=== PATIENT | male | born 1960 | race Caucasian/White ===

== ENCOUNTER 2017-04-29 14:50 | Emergency (ER) | payer MEDICAID ==
[~2017-04-29] VITALS: Ht 180.3 cm; Wt 68.0 kg
[2017-04-29] MEDS ORDERED: metoprolol tartrate 25mg tablet PO ONE ×2 (15:20→15:40)
[2017-04-29 15:58] LABS: BASOPHILS % (AUTO) 0.4 % (0-1); EOSINOPHILS # (AUTO) 0.2 X10'3 (0-0.9); EOSINOPHILS % (AUTO) 1.9 % (0-6); HEMOGLOBIN 15.4 g/dl (14.0-17.9); LYMPHOCYTES # (AUTO) 2.3 X10'3 (1.1-4.8); LYMPHOCYTES % (AUTO) 28.3 % (21-51); MEAN CORPUSCULAR HEMOGLOBIN 30.7 PG (27.0-31.0); MEAN CORPUSCULAR HGB CONC 34.3 % (33.0-36.5); MEAN CORPUSCULAR VOLUME 89.7 FL (78-98); MEAN PLATELET VOLUME 8.6 FL (7.4-10.4); MONOCYTES # (AUTO) 0.5 X10'3 (0-0.9); MONOCYTES % (AUTO) 6.6 % (2-12); NEUTROPHILS # (AUTO) 5.1 X10'3 (1.8-7.7); NEUTROPHILS % (AUTO) 62.8 % (42-75); PLATELET COUNT 243 X10'3 (140-440); RED BLOOD COUNT 5.02 X10'6 (4.70-6.10); RED CELL DISTRIBUTION WIDTH 13.2 % (11.5-14.5); WHITE BLOOD COUNT 8.1 X10'3 (4.5-11.0)
[2017-04-29 16:09] LABS: ALANINE AMINOTRANSFERASE 42 U/L (12-78); ALBUMIN 3.6 G/DL (3.4-5.0); ALBUMIN/GLOBULIN RATIO 1.1 (1.1-1.5); ALKALINE PHOSPHATASE 90 IU/L (46-116); ANION GAP 4 (8-16); ASPARTATE AMINO TRANSFERASE 22 U/L (10-37); BILIRUBIN,TOTAL 0.4 MG/DL (0.1-1.0); BLOOD UREA NITROGEN 13 MG/DL (7-18); CHLORIDE 105 MMOL/L (99-107); CREATININE 1.18 MG/DL (0.60-1.10); GLUCOSE 179 MG/DL (70-104); POTASSIUM 4.3 MMOL/L (3.5-5.1); SODIUM 142 MMOL/L (135-145); TOTAL CARBON DIOXIDE 33.4 MMOL/L (24-32); TOTAL PROTEIN 6.9 G/DL (6.4-8.2); eGFR 63 ML/MIN
[2017-04-29 16:18] LABS: MAGNESIUM 2.1 MG/DL (1.5-2.4)
[2017-04-29] MEDS ORDERED: iohexol 350MG/ML 100ml bottle IV ONE (16:46)
[2017-04-29 17:10] LABS: D-DIMER 0.27 MG/L FEU (0-0.50)
[2017-04-29] MEDS ORDERED: MESSAGE TO NURSING PO NR (17:10)
[2017-04-29] MEDS ORDERED: famotidine 20mg tablet PO ONE (17:15)
[2017-04-29] MEDS ORDERED: LIDOcaine Viscous 15ml cup PO ONE (17:15)
[2017-04-29] MEDS ORDERED: sucralfate 1 gm tablet PO ONE (17:15)
[2017-04-29] MEDS ORDERED: mag hydrox/Alum hydrox/simeth 30ml oral suspension PO ONE (17:15)
[2017-04-29] MEDS ORDERED: NITR0.4T51 SL (17:23)
[2017-04-29] MEDS ORDERED: LORazepam 1 MG tablet PO ONE (17:35)
[2017-04-29] MEDS ORDERED: ketorolac trometh. 30mg/ml inj. IV ONE (17:35)
[2017-04-29] MEDS ORDERED: HYDROcodone/acetaminophen 5mg/325mg tablet PO ONE (17:35)
[2017-04-29 19:14] VITALS: BP 152/92
== END 2017-04-29 19:16 | disposition home or self-care (01) ==
LOC: ER 14:50
DX: E86.0 Dehydration (principal); R07.89 Other chest pain; R10.13 Epigastric pain; K21.9 Gastro-esophageal reflux disease without esophagitis; E11.9 Type 2 diabetes mellitus without complications; F17.200 Nicotine dependence, unspecified, uncomplicated
CPT/HCPCS: 36415; 71010; 71275; 80053; 82948; 83735; 83880; 84484; 85025; 85379; 85610; 93005; 96374; 99285; J1885; Q9967

== ENCOUNTER 2018-08-25 14:09 | Emergency (ER) | payer MEDICAID ==
[~2018-08-25] VITALS: Ht 180.3 cm; Wt 72.7 kg
[2018-08-25 14:31] VITALS: BP 129/58
[2018-08-25] MEDS ORDERED: CEPH-572 PO (15:45)
[2018-08-25] MEDS ORDERED: SULF1TAB49 PO (15:45)
== END 2018-08-25 16:09 | disposition home or self-care (01) ==
LOC: ER 14:10
DX: L03.311 Cellulitis of abdominal wall (principal); K21.9 Gastro-esophageal reflux disease without esophagitis; E11.9 Type 2 diabetes mellitus without complications; Z79.899 Other long term (current) drug therapy
CPT/HCPCS: 99283

== ENCOUNTER 2018-11-21 11:48 | Emergency (ER) | payer MEDICAID ==
[~2018-11-21] VITALS: Ht 180.3 cm; Wt 72.0 kg
[2018-11-21 12:02] VITALS: BP 117/75
--- NOTE | 2018-11-21 12:46 | NUR ---
PT SLEEPING LAYING SUPINE, RESPIRATIONS EVEN AND UNLABORED. NO DISTRESS NOTED AT THIS TIME.
[2018-11-21] MEDS ORDERED: TETanus/Pertussis (Acell)/Diphther VAC/PF (Tdap-Adult) 0.5ml syringe IM ONE (13:55)
[2018-11-21] MEDS ORDERED: lidocaine 1%/epinephrine 1:100,000 injection 50ml vial ONE (14:00)
[2018-11-21] MEDS ORDERED: LIDOcaine 1% w/epiNEPHrine 1:200,000 30ml vial IM ONE (14:10)
[2018-11-21] MEDS ORDERED: CEPH-572 PO (14:12)
[2018-11-21] MEDS ORDERED: SULF1TAB49 PO (14:12)
== END 2018-11-21 14:51 | disposition home or self-care (01) ==
LOC: ER 11:49
DX: L02.31 Cutaneous abscess of buttock (principal); K21.9 Gastro-esophageal reflux disease without esophagitis; E11.9 Type 2 diabetes mellitus without complications; F15.90 Other stimulant use, unspecified, uncomplicated; Z79.2 Long term (current) use of antibiotics; Z79.899 Other long term (current) drug therapy
CPT/HCPCS: 10061; 90471; 99283

== ENCOUNTER 2018-11-22 10:48 | Emergency (ER) | payer MEDICAID ==
[~2018-11-22] VITALS: Ht 170.2 cm; Wt 71.0 kg
[~2018-11-22 10:48] MED LIST: CEPH-572 PO; SULF1TAB49 PO
[2018-11-22 10:51] VITALS: BP 126/78
--- NOTE | 2018-11-24 09:50 | NUR ---
LAB CALLED WITH RESULTS OF LT THIGHT CULTURE: MRSA +. PROVIDER NOTIFIED THAT PT WAS NOT ON ABX AT THIS TIME. Addendum: 11/24/18 at 1258 by ANN MARIE PT PREVIOUSLY SEEN ON 11/22 AND GIVEN RX FOR KEFLEX. PROVIDER NOTIFIED. ADDITIONAL MEDICATION TO BE ORDERED; BACTRIM DS 1 TABLET BID X7 DAYS. PT TO BE CALLED AND NOTIFIEID
== END 2018-11-22 12:13 | disposition home or self-care (01) ==
LOC: ER 10:49
DX: L02.31 Cutaneous abscess of buttock (principal); L02.415 Cutaneous abscess of right lower limb; L03.116 Cellulitis of left lower limb; Z48.00 Encounter for change or removal of nonsurgical wound dressing; K21.9 Gastro-esophageal reflux disease without esophagitis; E11.9 Type 2 diabetes mellitus without complications; F15.90 Other stimulant use, unspecified, uncomplicated; Z98.890 Other specified postprocedural states; Z79.899 Other long term (current) drug therapy
CPT/HCPCS: 87070; 87077; 87186; 99283

== ENCOUNTER 2019-04-25 00:22 | Emergency (ER) | payer MEDICAID ==
[~2019-04-25] VITALS: Ht 177.8 cm; Wt 79.5 kg
[2019-04-25 00:26] VITALS: BP 132/86
[2019-04-25] MEDS ORDERED: dexamethasone 4mg tablet PO ONE (01:00)
[2019-04-25] MEDS ORDERED: diphenhydrAMINE 25mg capsule PO ONE (01:00)
[2019-04-25] MEDS ORDERED: albuterol 2.5 MG/3 ML nebule NEB ONE (01:00)
== END 2019-04-25 01:34 | disposition home or self-care (01) ==
LOC: ER 00:24
DX: J06.9 Acute upper respiratory infection, unspecified (principal); J45.909 Unspecified asthma, uncomplicated; H10.13 Acute atopic conjunctivitis, bilateral; K21.9 Gastro-esophageal reflux disease without esophagitis; E11.9 Type 2 diabetes mellitus without complications; F17.200 Nicotine dependence, unspecified, uncomplicated; F15.90 Other stimulant use, unspecified, uncomplicated; Z98.890 Other specified postprocedural states
CPT/HCPCS: 94640; 99283; Q0163; 94760

== ENCOUNTER 2019-06-06 10:30 | Outpatient (CLI) | payer MEDICAID ==
[2019-06-06] MEDS ORDERED: METF500T20 PO (10:48)
[2019-06-06] MEDS ORDERED: ATOR40TA PO (10:48)
[2019-06-06] MEDS ORDERED: GLIP5TAB13 PO (10:48)
[2019-06-06] MEDS ORDERED: LISI40TA4 PO (10:48)
[2019-06-06 11:26] LABS: BASOPHILS % (AUTO) 0.4 % (0-1); EOSINOPHILS # (AUTO) 0.1 X10'3 (0-0.9); EOSINOPHILS % (AUTO) 2.1 % (0-6); LYMPHOCYTES # (AUTO) 2.6 X10'3 (1.1-4.8); MEAN CORPUSCULAR HEMOGLOBIN 30.2 PG (27.0-31.0); MEAN CORPUSCULAR HGB CONC 34.9 g/dL (33.0-36.5); MEAN CORPUSCULAR VOLUME 86.4 FL (78-98); MEAN PLATELET VOLUME 9.5 FL (7.4-10.4); MONOCYTES # (AUTO) 0.6 X10'3 (0-0.9); MONOCYTES % (AUTO) 8.5 % (2-12); NEUTROPHILS # (AUTO) 3.5 X10'3 (1.8-7.7); PRE OP HEMATOCRIT 46.2 % (42.0-52.0); PRE OP HEMOGLOBIN 16.1 g/dL (14.0-17.9); PRE OP PLATELET COUNT 239 X10'3 (140-440); RED BLOOD COUNT 5.35 X10'6 (4.70-6.10); RED CELL DISTRIBUTION WIDTH 12.8 % (11.5-14.5)
[2019-06-06 11:36] LABS: HEMOGLOBIN A1C 9.2 % (4.5-6.2)
[2019-06-06 11:42] LABS: ALBUMIN 3.7 G/DL (3.4-5.0); ALKALINE PHOSPHATASE 116 IU/L (46-116); BLOOD UREA NITROGEN 13 MG/DL (7-18); BUN/CREATININE RATIO 12.6 (5.4-32.0); CALCIUM 9.3 MG/DL (8.5-10.1); CHLORIDE 99 MMOL/L (99-107); CREATININE 1.03 MG/DL (0.60-1.10); PRE OP ALT 23 U/L (30-65); PRE OP ANION GAP 7 (8-16); PRE OP AST 18 U/L (10-37); PRE OP BILIRUB, TOTAL 0.7 MG/DL (0.0-1.0); PRE OP POTASSIUM 4.3 MMOL/L (3.4-5.1); PRE OP SODIUM 136 MMOL/L (135-145); TOTAL CARBON DIOXIDE 29.9 MMOL/L (24-32); TOTAL PROTEIN 7.4 G/DL (6.4-8.2); eGFR 73 ML/MIN
[2019-06-06 12:17] LABS: PRE OP GLUCOSE 470 MG/DL (70-104)
== END 2019-06-06 23:59 | disposition home or self-care (01) ==
LOC: PRE-OP 10:30 → EDSTATUS 06-14 08:45
PROVIDERS: ATTEND Orthopaedic Surgery
DX: Z01.818 Encounter for other preprocedural examination (principal); S83.231D Complex tear of medial meniscus, current injury, right knee, subsequent encounter; M17.12 Unilateral primary osteoarthritis, left knee; E11.59 Type 2 diabetes mellitus with other circulatory complications; I10 Essential (primary) hypertension; E66.8 Other obesity; M17.11 Unilateral primary osteoarthritis, right knee; X58.XXXD Exposure to other specified factors, subsequent encounter
CPT/HCPCS: 36415; 80053; 83036; 85025; 85610; 85730

== ENCOUNTER 2019-08-17 10:27 | Emergency (ER) | payer MEDICAID ==
[~2019-08-17] VITALS: Ht 177.8 cm; Wt 80.0 kg
[~2019-08-17 10:27] MED LIST changes: +ATOR40TA PO; -CEPH-572 PO; +GLIP5TAB13 PO; +LISI40TA4 PO; +METF500T20 PO; -SULF1TAB49 PO
[2019-08-17 10:32] VITALS: BP 117/86
[2019-08-17] MEDS ORDERED: MUPI22OI30 TOP (11:28)
[2019-08-17] MEDS ORDERED: DOXY100C2 PO (11:28)
== END 2019-08-17 11:40 | disposition home or self-care (01) ==
LOC: ER 10:28
DX: L03.314 Cellulitis of groin (principal); N48.22 Cellulitis of corpus cavernosum and penis; K21.9 Gastro-esophageal reflux disease without esophagitis; E11.9 Type 2 diabetes mellitus without complications; F15.90 Other stimulant use, unspecified, uncomplicated; Z98.890 Other specified postprocedural states; Z79.899 Other long term (current) drug therapy; Z79.84 Long term (current) use of oral hypoglycemic drugs
CPT/HCPCS: 82948; 99283

== ENCOUNTER 2020-01-18 13:53 | Emergency (ER) | payer MEDICAID ==
[~2020-01-18] VITALS: Ht 177.8 cm; Wt 72.7 kg
[~2020-01-18 13:53] MED LIST changes: +METF-900 PO; -METF500T20 PO
[2020-01-18 13:56] VITALS: BP 158/96
== END 2020-01-18 14:07 | disposition left against medical advice (07) ==
LOC: ER 13:54
DX: R30.0 Dysuria (principal); Z53.21 Procedure and treatment not carried out due to patient leaving prior to being seen by health care provider

== ENCOUNTER 2020-05-29 18:43 | Emergency (ER) | payer MEDICAID ==
[~2020-05-29] VITALS: Ht 172.7 cm; Wt 81.8 kg
[2020-05-29 18:58] VITALS: BP 141/84
== END 2020-05-29 20:02 | disposition home or self-care (01) ==
LOC: ER 18:44
DX: R43.8 Other disturbances of smell and taste (principal); R05 Cough; Z20.822 Contact with and (suspected) exposure to COVID-19; I10 Essential (primary) hypertension; K21.9 Gastro-esophageal reflux disease without esophagitis; E11.9 Type 2 diabetes mellitus without complications; F17.200 Nicotine dependence, unspecified, uncomplicated; F15.90 Other stimulant use, unspecified, uncomplicated; Z98.890 Other specified postprocedural states; Z79.899 Other long term (current) drug therapy
CPT/HCPCS: 36415; 87635; 99283

== ENCOUNTER 2020-06-03 05:12 | Emergency (ER) | payer MEDICAID ==
[~2020-06-03] VITALS: Ht 177.8 cm; Wt 75.0 kg
[2020-06-03] MEDS ORDERED: ibuprofen tablet 400 MG TABLET PO ONE (05:30)
[2020-06-03 05:52] VITALS: BP 132/76
== END 2020-06-03 05:54 | disposition home or self-care (01) ==
LOC: ER 05:12
DX: U07.1 COVID-19 (principal); M54.5 Low back pain; Z86.16 Personal history of COVID-19; I10 Essential (primary) hypertension; K21.9 Gastro-esophageal reflux disease without esophagitis; E11.9 Type 2 diabetes mellitus without complications; F15.90 Other stimulant use, unspecified, uncomplicated; Z79.899 Other long term (current) drug therapy
CPT/HCPCS: 99283

== ENCOUNTER → 2023-09-20 | Emergency (ER) | payer MEDICARE, MEDICAID ==
[~2023-09-20] VITALS: Ht 177.8 cm; Wt 69.1 kg
[~2023-09-20] MED LIST changes: +CEPH250T PO; -GLIP5TAB13 PO; +GLIP5TAB23 PO; +LISI40TA13 PO; -LISI40TA4 PO
[2023-09-20 04:29] VITALS: TEMP 98
[2023-09-20 08:26] LABS: BASOPHILS # (AUTO) 0.1 X10'3 (0-0.2); BASOPHILS % (AUTO) 0.7 % (0-1); EOSINOPHILS # (AUTO) 0.1 X10'3 (0-0.9); EOSINOPHILS % (AUTO) 1.2 % (0-6); HEMATOCRIT 47.1 % (42.0-52.0); HEMOGLOBIN 16.1 g/dl (14.0-17.9); LYMPHOCYTES # (AUTO) 2.5 X10'3 (1.1-4.8); MEAN CORPUSCULAR HGB CONC 34.2 g/dL (33.0-36.5); MEAN CORPUSCULAR VOLUME 87.6 FL (78-98); MEAN PLATELET VOLUME 9.4 FL (7.4-10.4); MONOCYTES # (AUTO) 0.6 X10'3 (0-0.9); MONOCYTES % (AUTO) 6.3 % (2-12); NEUTROPHILS # (AUTO) 5.7 X10'3 (1.8-7.7); NEUTROPHILS % (AUTO) 63.8 % (42-75); PLATELET COUNT 208 X10'3 (140-440); RED BLOOD COUNT 5.37 X10'6 (4.70-6.10); RED CELL DISTRIBUTION WIDTH 12.7 % (11.5-14.5); WHITE BLOOD COUNT 8.9 X10'3 (4.5-11.0)
[2023-09-20 08:27] LABS: BILIRUBIN,URINE NEGATIVE (Neg); CLARITY,URINE CLEAR (Clear); COLOR,URINE YELLOW (Yellow); GLUCOSE, URINE >=1000 mg/dl (Neg); KETONES,URINE NEGATIVE (Neg); LEUKOCYTE ESTERASE ,URINE NEGATIVE (Neg); NITRITES, URINE NEGATIVE (Neg); OCCULT BLOOD,URINE NEGATIVE (Neg); PROTEIN,URINE NEGATIVE (Neg); UROBILINOGEN,URINE 0.2 E.U/dL (0.2-1.0)
[2023-09-20 08:42] LABS: UA COLLECTION TYPE VOIDED
[2023-09-20 08:44] LABS: SQUAMOUS EPITHELIAL CELL,UR FEW /LPF (FEW)
[2023-09-20 08:49] LABS: YEAST MODERATE /HPF (NEGATIVE)
[2023-09-20 08:49] LABS: ALANINE AMINOTRANSFERASE 23 U/L (12-78); ALBUMIN/GLOBULIN RATIO 1.1 (1.1-1.5); ALKALINE PHOSPHATASE 117 IU/L (46-116); ANION GAP 7 (8-16); ASPARTATE AMINO TRANSFERASE 12 U/L (10-37); BILIRUBIN,TOTAL 0.8 MG/DL (0.1-1.0); BLOOD UREA NITROGEN 18 MG/DL (7-18); BUN/CREATININE RATIO 19.8 (10.0-20.0); CALCIUM 9.7 MG/DL (8.5-10.1); CHLORIDE 98 MMOL/L (99-107); CREATININE 0.91 MG/DL (0.60-1.10); GLUCOSE 379 MG/DL (70-104); POTASSIUM 4.3 MMOL/L (3.5-5.1); SODIUM 133 MMOL/L (135-145); TOTAL CARBON DIOXIDE 28.5 MMOL/L (24-32); TOTAL PROTEIN 7.7 G/DL (6.4-8.2); eCRCL 79 ML/MIN; eGFR 84 ML/MIN
[2023-09-20 08:51] LABS: BACTERIA,URINE FEW /HPF (Neg); RBC,URINE 0-2 /HPF (0-2); WBC,URINE 30-50 /HPF (0-4)
[2023-09-20] MEDS: normal saline 1000ml 1,000 ML IV ONE (08:51)
[2023-09-20 10:06] VITALS: O2SAT 96
[2023-09-20] MEDS: insulin regular, human 10 units/0.1 ml syringe IV ONE (10:13)
[2023-09-20] MEDS: aspirin 81mg tab.chew PO ONE (10:36)
[2023-09-20] MEDS: CefTRIAXone 2gm/D5W 50ml BAG 50 ML IV ONE (10:42)
[2023-09-20 11:11] LABS: BASOPHILS % (AUTO) 0.4 % (0-1); EOSINOPHILS # (AUTO) 0.1 X10'3 (0-0.9); EOSINOPHILS % (AUTO) 1.3 % (0-6); HEMOGLOBIN 14.6 g/dl (14.0-17.9); LYMPHOCYTES # (AUTO) 2.1 X10'3 (1.1-4.8); LYMPHOCYTES % (AUTO) 29.9 % (21-51); MEAN CORPUSCULAR HEMOGLOBIN 30.1 PG (27.0-31.0); MEAN CORPUSCULAR HGB CONC 33.9 g/dL (33.0-36.5); MEAN CORPUSCULAR VOLUME 88.7 FL (78-98); MEAN PLATELET VOLUME 9.3 FL (7.4-10.4); MONOCYTES # (AUTO) 0.4 X10'3 (0-0.9); MONOCYTES % (AUTO) 6.1 % (2-12); NEUTROPHILS # (AUTO) 4.4 X10'3 (1.8-7.7); NEUTROPHILS % (AUTO) 62.3 % (42-75); PLATELET COUNT 187 X10'3 (140-440); RED BLOOD COUNT 4.85 X10'6 (4.70-6.10); RED CELL DISTRIBUTION WIDTH 12.7 % (11.5-14.5)
[2023-09-20 11:31] LABS: ALBUMIN 3.3 G/DL (3.4-5.0); ANION GAP 7 (8-16); BLOOD UREA NITROGEN 16 MG/DL (7-18); BUN/CREATININE RATIO 20.3 (10.0-20.0); CALCIUM 8.3 MG/DL (8.5-10.1); CHLORIDE 101 MMOL/L (99-107); CREATININE 0.79 MG/DL (0.60-1.10); GLUCOSE 303 MG/DL (70-104); MAGNESIUM 1.5 MG/DL (1.5-2.4); POTASSIUM 3.9 MMOL/L (3.5-5.1); PRO BRAIN NATRIURETIC PEPTIDE 42 PG/ML (0-125); SODIUM 135 MMOL/L (135-145); TOTAL CARBON DIOXIDE 27.1 MMOL/L (24-32); eCRCL 91 ML/MIN; eGFR > 90 ML/MIN
[2023-09-20 11:46] VITALS: BP 139/60; PULSE 72; RESP 17
== END | disposition home or self-care (01) ==
LOC: ER 04:10
DX: E11.65 Type 2 diabetes mellitus with hyperglycemia (principal); I10 Essential (primary) hypertension; K21.9 Gastro-esophageal reflux disease without esophagitis; F15.90 Other stimulant use, unspecified, uncomplicated
CPT/HCPCS: 36415; 71045; 80048; 80053; 81001; 82948; 83605; 83735; 83880; 84145; 85025; 87040; 93005; 96365; 99285; J0696; J7030; 96361